=== PATIENT | female | born 1970 | race Caucasian/White ===

== ENCOUNTER 2024-04-13 06:14 | Observation (INO) ==
--- NOTE | 2024-03-10 13:44 | PAT Medication Instructions ---
Medication Instructions Date of Service March 10, 2024 Home Medications cholecalciferol (vitamin D3) 125 mcg (5,000 unit) tablet (Vitamin D3) 125 mcg PO DAILY ibuprofen 300 mg tablet 1,200 mg PO DAILY pregabalin 75 mg capsule (Lyrica) 75 mg PO BID semaglutide 1 mg/dose (4 mg/3 mL) subcutaneous pen injector (Ozempic) 1 mg subcut WK ASK your surgeon for instructions ibuprofen 300 mg tablet 1,200 mg PO DAILY STOP 7 days prior to surgery semaglutide 1 mg/dose (4 mg/3 mL) subcutaneous pen injector (Ozempic) 1 mg subcut WK DO NOT take the morning of surgery cholecalciferol (vitamin D3) 125 mcg (5,000 unit) tablet (Vitamin D3) 125 mcg PO DAILY Take morning of surgery With a small sip of water, OTHERWISE NOTHING TO EAT OR DRINK AFTER MIDNIGHT: pregabalin 75 mg capsule (Lyrica) 75 mg PO BID Take evening before surgery pregabalin 75 mg capsule (Lyrica) 75 mg PO BID Other Notes If you have any questions please call us at [phone] or [phone] or [phone] or [phone]
--- NOTE | 2024-03-22 11:12 | Anesthesiology Consultation ---
Date of Service March 22, 2024 Assessment & Plan (1) Encounter for pre-operative examination: - Check BSG, test DOS - Infectious disease screening: Per assessment on 03/22/24- No known recent infectious disease contacts or current infectious disease symptoms. - Semaglutide instructions: Patient informed by PAT to stop 7 days prior to surgery- voiced understanding. DOS 04/13/24. Advised last dose to be 04/03/24. - Patient acceptable risk for surgery pending surgeon-ordered PCP preop evaluation (Leticia TALAMANTES/[place], appt 04/05). Chart Review Chart Review: Patient seen in Pre Admission Testing Teaching & Discussion Pre-Anesthesia Teaching/Discussion Notes: Instructed NPO after midnight before surgery,except medications with 15 cc of water. Medication instructions provided according to the PAT guidelines. History Surgery Operation Date: 04/13/24 11:05 Proposed Procedures p C3-C5 Anterior Cervical Discectomy and Fusion - Axel Tee, Height/Weight Height: 5 ft 8 in Weight: 90.5 kg Allergies Allergy/AdvReac Type Severity Reaction Status Date / Time acetaminophen AdvReac Intermediate Restlessness, Verified 03/10/24 07:45 "Crawling" Sensation oxycodone AdvReac Intermediate Restlessness, Verified 03/10/24 07:45 "Crawling" Sensation Medications Home Medications Medication Instructions Recorded Confirmed Last Taken cholecalciferol (vitamin D3) 125 125 mcg PO DAILY 03/10/24 03/10/24 Unknown mcg (5,000 unit) tablet (Vitamin D3) ibuprofen 300 mg tablet 1,200 mg PO DAILY 03/10/24 03/10/24 Unknown pregabalin 75 mg capsule (Lyrica) 75 mg PO BID 03/10/24 03/10/24 Unknown semaglutide 1 mg/dose (4 mg/3 mL) 1 mg subcut WK 03/10/24 03/10/24 03/06/24 subcutaneous pen injector (Ozempic) Past Medical History Medical History Cervical radiculopathy History of hypertension "Resolved" with weight loss Hx of diabetes mellitus "Resolved" with weight loss Obesity Patient states weekly GLP-1 injectable is for weight loss (not diabetes) Exercise / Class Metabolic Activity II 4-5 Yardwork/Stairs/Walk up hill Past Surgical History Surgical History History of cervical corpectomy (2008) with fusion History of laminectomy (2004) L1 Hx of cardiac catheterization ~2020 ([facility] [address])- no stents, no significant findings per patient Hx of tonsillectomy Hx of wisdom tooth extraction Past Anesthesia History No Hx of Anesthesia Complications and No Family Hx of Anesthesia Complications History of PONV No Hx of PONV and No Hx of Motion Sickness Social History Smoking Status: Never smoker Do You Dip or Chew Tobacco: No Hx Alcohol Use: No Hx Substance Use: No substance use type: does not use Review of Systems Patient denies chest pain, shortness of breath, dyspnea on exertion, fever, chills, cough, wheezing. Physical Exam Vital Signs BP 115/80 P 68 TEMP 98.1 SP02 99%RA RESP 16 Physical Mildly decreased cervical extension range of motion. Full TMJ range of motion. TMD > 3.5 finger breaths Mallampati Score II Dentition: intact, + 2 caps, + crown Lungs: clear throughout to auscultation Cardiac: regular rate and rhythm, no murmurs noted Spine: normal Carotid arteries: negative bruit Extremities: no LE edema Lab Results Anesthesia Preop Results Results Anesthesia Widget: WBC 5.65 K/ul (4.8-10.8) 03/22/24 Hgb 14.3 g/dl (12.0-16.0) 03/22/24 Hct 42.3 % (37.0-47.0) 03/22/24 Plt 266 K/uL (130-400) 03/22/24 Na 141 mmol/L (136-145) 03/22/24 K 4.4 mmol/L (3.5-5.1) 03/22/24 Cl 104 mmol/L (98-107) 03/22/24 CO2 30 mmol/L (21-32) 03/22/24 BUN 14 mg/dl (6-23) 03/22/24 Creat 0.80 mg/dl (0.6-1.2) 03/22/24 Glucose Level 92 mg/dl (70-99(Fasting)) 03/22/24 PT 10.5 Seconds (9.0-12.0) 03/22/24 PTT 28 Seconds (21-31) 03/22/24 INR 1.0 (0.9-1.1) 03/22/24 Urine Color Yellow 03/22/24 Urine Appearance Clear (Clear) 03/22/24 Urine pH 5.5 (4.5-7.5) 03/22/24 Urine Specific [place] 1.006 (1.000-1.030) 03/22/24 Urine Protein Negative (Negative) 03/22/24 Urine Glucose (UA) Negative (Negative) 03/22/24 Urine Ketones Negative (Negative) 03/22/24 Urine Blood Negative (Negative) 03/22/24 Urine Nitrite Negative (Negative) 03/22/24 Urine Bilirubin Negative (Negative) 03/22/24 Urine Urobilinogen Negative (Negative) 03/22/24 Urine Leukocyte Esterase 1+ (Negative) H 03/22/24 Urine WBC (Auto) 0-5 /hpf (0-5) 03/22/24 Urine RBC (Auto) 0-2 /hpf (0-2) 03/22/24 Urine Hyaline Casts (Auto) 0-2 /lpf (0-2) 03/22/24 Urine Epithelial Cells (Auto) 0-2 /hpf (0-2) 03/22/24 Urine Bacteria (Auto) None Seen (None Seen) 03/22/24 Blood Type O Positive 03/22/24 Antibody Screen NEGATIVE 03/22/24 Testing Electrocardiogram Date: 03/22/24 SR with first degree AVB at 65bpm. "Otherwise normal ECG" Chest X-Ray Date: 03/22/24 Findings: + NAD Stress Test Date: 05/21/20 Type: nuclear (Lexiscan) No significant ischemia or infarction by myocardial perfusion imaging. No significant ST segment changes. EF 79%.
--- OUTSIDE RECORDS SUMMARY | 2024-04-13 06:23 | External Medical Summary ---
Author Name Unknown Address Unknown Organization K0N:[facility], [place] [address] Laboratory Report Ordering Provider Test Date Status SARAH GONZALES 04/05/2024 10:31:09 Preliminary Observation Date Value Abnormality Reference (Units ) Status [facility] CULTURE, URINE 04/05/2024 10:31:09 [id number]^[facility] ERICHIA COLI Abnormal Preliminary >100,000 coloniesmL Escheric hia coli COMPONENT DEFAULT FOR TEXT MICRO 04/05/2024 10:31:09 Test: Culture, Urine, Quantitative Abnormal Preliminary COMPONENT DEFAULT FOR TEXT MICRO 04/05/2024 10:31:09 Specimen Source: Urine, Clean Catch Abnormal Preliminary COMPONENT DEFAULT FOR TEXT MICRO 04/05/2024 10:31:09 Specimen Type: Urine Abnormal Preliminary COMPONENT DEFAULT FOR TEXT MICRO 04/05/2024 10:31:09 Specimen Date: 04/05/2024 1031 Abnormal Preliminary COMPONENT DEFAULT FOR TEXT MICRO 04/05/2024 10:31:09 Result Date: 04/06/2024 0949 Abnormal Preliminary COMPONENT DEFAULT FOR TEXT MICRO 04/05/2024 10:31:09 Result Status: Preliminary result Abnormal Preliminary COMPONENT DEFAULT FOR TEXT MICRO 04/05/2024 10:31:09 Abnormal: Yes Abnormal Preli minary COMPONENT DEFAULT FOR TEXT MICRO 04/05/2024 10:31:09 Resulting Lab: LABORATORY [facility] Abnormal Preliminary COMPONENT DEFAULT FOR TEXT MICRO 04/05/2024 10:31:09 [facility] Abnormal Preliminary COMPONENT DEFAULT FOR TEXT MICRO 04/05/2024 10:31:09 Kimberley HENDERSON [id number] Abnormal Preliminary COMPONENT DEFAULT FOR TEXT MICRO 04/05/2024 10:31:09 Abnormal Prelim inary COMPONENT DEFAULT FOR TEXT MICRO 04/05/2024 10:31:09 Abnormal Prelim inary COMPONENT DEFAULT FOR TEXT MICRO 04/05/2024 10:31:09 CULTURE Abnormal Prelim inary COMPONENT DEFAULT FOR TEXT MICRO 04/05/2024 10:31:09 Abnormal Preliminary COMPONENT DEFAULT FOR TEXT MICRO 04/05/2024 10:31:09 Abnormal Prelim inary COMPONENT DEFAULT FOR TEXT MICRO 04/05/2024 10:31:09 >100,000 colonies/mL Escherichia coli (Abnormal) Abnormal Preliminary COMPONENT DEFAULT FOR TEXT MICRO 04/05/2024 10:31:09 Abnormal Prelim inary COMPONENT DEFAULT FOR TEXT MICRO 04/05/2024 10:31:09 Abnormal Prelim inary COMPONENT DEFAULT FOR TEXT MICRO 04/05/2024 10:31:09 Abnormal Prelim [place] [address]
--- OUTSIDE RECORDS SUMMARY | 2024-04-13 06:23 | External Medical Summary | Summary of Care ---
Author Name Unknown Organization [facility] Address [address] [facility] [place] [address] Care Team Providers Care Coder Name Role Phone Leticia Sherman PA-C Primary Care Provider Reason for Visit * Reason Comments pre-op exam Patient is here for a pre-op exam for upcoming surgery 04/13 with at [facility] - spinal fusion. She has concerns with dysuria and strong odor in urine Encounter Details Date Type Department Care Team (Late st Contact Info) Description 04/05/2024 10:15 AM EST Office Visit Family Medicine, [facility] [address] [facility] [address] [phone] Leticia Sherman PA-C [address] [facility] [address] [place] [address] Pre-op exam*; Cervical spinal stenosis; Dysuria; Acute cystitis with hematuria Allergies Active Allergy Reactions Criticality Noted Date Comments Oxycodone-Acetaminop hen Itching,Other (Please comment) 02/06/2009 Crawling feeling all over documented as of this encounter (statuses as of 04/12/2024) Medications Ozempic (1 MG/DOSE) 4 MG/3ML Subcutaneous Solution Pen-injector (Semaglutide (1 MG/DOSE))Indicati ons:Diabetes mellitus type II, non insulin dependent (HCC) Inject 1 mg under the skin once a week. 3 mL 3 4 Active Pregabalin 75 MG Oral Capsule (Lyrica) Take 1 Capsule by mouth every 12 hours. 4 04/08/19 25 Ciprofloxacin HCl 500 MG Oral Tablet (Cipro)Indication s:Dysuria Take 1 Tablet by mouth in the morning and 1 Tablet before bedtime. Do all this for 5 days. 10 Tablet 5 04/10/19 25 documented as of this encounter (statuses as of 04/12/2024) Active Problems Problem Noted Date Diagnosed Date Pre-op exam 04/05/2024 Hypertension, benign 10/15/2023 Hypertriglyceridemia 10/15/2023 Degeneration, intervertebral disc, cervical 03/2023 Diabetes mellitus type II, non insulin dependent 10/15/2023 History of neck surgery 10/15/2023 Bilateral hand numbness 10/15/2023 documented as of this encounter (statuses as of 04/12/2024) Immunizations Name Administration Dates Next Due COVID-19 mRNA, LNP-s, No Pre serve, 2-Dose Series (Moderna) 07/06/2020,06/08/2020 documented as of this encounter Social History Tobacco Use Types Packs/Day Years Used Date Smoking Tobacco: Never Smokeless Tobacco: Never Tobacco Cessation:Counseling Given: Not Answered Alcohol Use Standard Drinks/Week Comments Never 0 (1 standard drink = 0.6 oz pur e alcohol) Comments No Sex and Gender Information Value Date Recorded Sex Assigned at Not on file Legal Sex Female 6:12 AM EST Gender Identity Not on file Sexual Orientation Not on file documented as of this encounter Last Filed Vital Signs Vital Sign Reading Time Taken Comments Blood Pressure 124/78 04/05/2024 10:16 AM EST Pulse 72 04/05/2024 10:16 AM EST Temperature 36.3 C (97.3 F) 04/05/2024 1 0:16 AM EST Respiratory Rate - - Oxygen Saturation 96% 04/05/2024 10: 16 AM EST Inhaled Oxygen Concentration - - Weight 91.1 kg (200 lb 12.8 oz) 01/21/2 025 10:16 AM EST Height - - Body Mass Index 30.53 10/15/2023 1:56 PM EDT documented in this encounter Progress Notes * Leticia Sherman PA-C - 04/05/2024 10:05 AM EST Images from the original note were not included. Pre-Operative Medical Evaluation Procedure Information Type of Surgery: ACDF of c3-5 with most likely stand alone cages and fixation Referring Physician / Surgeon: dr Axel Tee Date of procedure: 04/13/24 Brief History of Present Illness: Is scheduled for neck surgery 04/13 Started yesterday with dysuria, frequency and pelvic pressure; no fevers Review of Systems: Constitutional ROS: No change in weight, No weakness, No fatigue, and No fevers, sweats, or chills Eye ROS: No recent significant change in vision, No eye pain, redness, discharge, No diplopia, No h/o cataracts, and No h/o glaucoma Ear ROS: No ear pain, No drainage, No tinnitus or vertigo, and No recent change in hearing Nose ROS: No history of frequent colds or sinusitis, No nasal stuffiness, and No significant epistaxis Pulmonary ROS: No cough, sputum, or hemoptysis, No wheezing, No rales, No shortness of breath, and No recent change in breathing Cardiovascular ROS: No chest pain, No shortness of breath, No dyspnea on exertion, No orthopnea, Noparoxysmal nocturnal dyspnea, No edema, No palpitations, and No syncope Musculoskeletal/Extremities ROS: No pain, redness or swelling on the joints Skin/Integumentary ROS: No edema, No rash, and No itching Neurologic ROS: Normal balance, No headaches, No seizures, and No weakness as noted above Medical History Problem List: Pre-op exam (04/05/2024) Hypertension, benign (10/15/2023) Hypertriglyceridemia (10/15/2023) Degeneration, intervertebral disc, cervical (10/15/2023) Diabetes mellitus type II, non insulin dependent (HCC) (10/15/2023) History of neck surgery (10/15/2023) Bilateral hand numbness (10/15/2023) Current Medications Ciprofloxacin HCl 500 MG Oral Tablet (Cipro), 500 mg, Oral, Q12H Pregabalin 75 MG Oral Capsule (Lyrica), 1 Capsule, Oral, Q12H Ozempic (1 MG/DOSE) 4 MG/3ML Subcutaneous Solution Pen-injector (Semaglutide (1 MG/DOSE)), 1 mg, Subcutaneous, Q Week Allergies: Percocet [oxycodone-acetaminophen] Past Medical History: has no past medical history on file. Past Surgical History: has a past surgical history that includes neck spine fusion (cerv, below c2) (10/30/2008) and Laminectomy/Laminotomy, Cerv Thoracic,Guide. Social History: reports that she has never smoked. She has never used smokeless tobacco. She reports that she does not drink alcohol and does not use drugs. Family History: family history is not on file. Anesthesia History Type of Anesthesia: General Endotracheal and Caudal block Anesthesia reaction: No History of surgical complications: None Personal history of venous thromboembolic disease: None Physical Exam Vitals: 04/05/24 1016 Temp: 36.3 C (97.3 F) Pulse: 72 SpO2: 96% BP: 124/78 General: alert, healthy, and no distress Head: Normocephalic, No masses, lesions, tenderness or abnormalities Eye Exam: PERRLA, extraocular movements intact, conjunctiva are pink and non- injected, sclera clear Ears: External ears normal, Canals clear, TM's Normal Heart: regular rate & rhythm, no murmur, and no gallops Lungs: chest symmetric with normal AP diameter, no chest deformities noted, no chest wall tenderness, lungs clear to auscultation Extremities: less than 2 second capillary refill, no joint deformities, effusion, or inflammation Neuro Exam: alert & oriented x 3 with fluent speech, no focal motor/sensory deficits, gait normal, reflexes normal and symmetric Skin: skin color, texture, turgor are normal, no rashes or significant lesions Neck: as noted per Ortho Labs reviewed and are significant for: Levels are within normal ranges ; chest xray clear EKG by my review is significant for: sinus rhythm with 1st degree AV block - no cardiac associated signs or symptoms Surgical Risk Scoring Revised Cardiac Risk Index (RCRI) High-risk type of surgery (examples include vascular and any open intraperitoneal or intrathoracic procedures): 0=No History of ischemic heart disease (history of myocardial infarction or positive exercise test, current compliant of chest pain considered to be secondary to myocardia ischemia, use of nitrate therapy, or ECG with pathological Q waves; do not count prior coronary revascularization procedure unless one of the other criteria for ischemic heart disease is present): 0=No History of heart failure: 0=No History of cerebrovascular disease: 0=No Diabetes mellitus requiring treatment with insulin: 0=No Preoperative serum creatinine >2.0 mg/dL (177 micromol/L): 0=No Pt has revised cardiac index score of: No Risk Factors- 0.4% (95% CI: 0.1-0.8) Assessment and Plan Pre-op exam Cervical spinal stenosis Dysuria/Acute cystitis with hematuria - CULTURE, URINE, QUANTITATIVE - URINALYSIS, POINT OF CARE (ENTER/EDIT) - Ciprofloxacin HCl 500 MG Oral Tablet (Cipro); Take 1 Tablet by mouth in the morning and 1 Tablet before bedtime. Do all this for 5 days. Labs reviewed, stable Chest xray clear EKG with sinus rhythm and 1st degree AV block; no cardiac associated signs or symptoms Patient cleared for surgery pending the resolution of her urinary symptoms which should resolve with 5 day course of Ciprofloxacin Functional Assessment They are able to walk up a flight of stairs, walk two blocks at a moderate pace, do heavy house work like vacuuming, and grocery shop. The patient's functional status is good (greater than 4 METS). 1 MET: 4 METs: 4-10 METs: Can take care of self, such as eat, dress or use the toilet. Can walk to block or go up a flight of steps. Can do heavy house work. Surgical Risk Assessment Patient is low medical risk for the listed procedure and cleared based on my exam today . Medication adjustments: Cipro BID for 5 days for acute cystitis Additional consults or testing: None documented in this encounter Miscellaneous Notes * Result Encounter Note - Leticia Sherman PA-C - 04/05/2024 11:04 AM EST On cipro for 5 days - surgery 04/13 documented in this encounter Plan of Treatment Health Maintenance Due Date Last Done Comments Lipid Panel 1969 HbA1c 09/29/1975 Depression Screening 1981 HIV Screening 1984 Albumin/Creatinine Ratio 09/29/1987 Diabetic Eye Exam 09/29/1987 Diabetic Foot Exam 09/29/1987 Hepatitis C Screening 09/29/1987 DTap/Tdap Vaccines (1 - Tdap) 1988 Hepatitis B Vaccine (1 of 3 - 19+ 3-dose series) 1988 Pneumococcal Vaccine: 50+ Years (1 of 2 - PCV) 1988 Pap Smear 1990 Cervical Cancer Screening 09/29/1999 HPV/Co-Test 09/29/1999 Colonoscopy 2014 Fecal Occult Blood Test 2014 Sigmoidoscopy 2014 Zoster Vaccines (1 of 2) 09/29/2019 GFR 07/31/2021 07/31/2020 Mammogram 05/24/2023 05/23/2022, 05/23/2022, 04/29/2022 COVID-19 Vaccine (3 - 2023-2 5 season) 2023 07/06/2020, 06/08/2020 Influenza Vaccine (FLU shot) (#1) 2023 Cologuard 02/27/2025 02/27/2022 Colorectal Cancer Screening 02/27/2025 HPV (Gardasil) Vaccine Aged Out No lo nger eligible based on patient's age to complete this topic MENINGOCOCCAL (MENACTRA/MENVEO) Aged Out No longer eligible b ased on patient's age to complete this topic documented as of this encounter Medical Devices Not on filedocumented as of this encounter Procedures Procedure Name Priority Date/Time Associated Diagnosis Comments CULTURE, URINE, QUANTITATIVE Routine 04/05/2024 10:31 AM EST Dysuria URINALYSIS, POINT OF CARE (ENTER/EDIT) Routine 04/05/2024 Dysuria documented in this encounter Results * (ABNORMAL) CULTURE, URINE, QUANTITATIVE (04/05/2024 10:31 AM EST) Culture, Urine >100,000 colonies/mL Escherichia coli(A) 04/07/2024 11:58 AM EST [facility] Urine Urine specimen obtained by clean catch procedure / Unknown Non-blood Collection / Unknown 04/05/2024 10:31 AM EST 04/05/2024 10:31 AM EST Narrative Organism Antibiotic Method Susceptibility Escherichia coli Ampicillin >=32: Resistant Escherichia coli Ampicillin/Sulbactam 8: Susceptible Escherichia coli Cefazolin <=4: Susceptible Escherichia coli Cefepime <=1: Susceptible Escherichia coli Ciprofloxacin <=0.25: Susceptible Escherichia coli Gentamicin <=1: Susceptible Escherichia coli Levofloxacin <=0.12: Susceptible Escherichia coli Nitrofurantoin <=16: Susceptible Escherichia coli Piperacillin Tazobactam <=4: Susceptible Escherichia coli Tobramycin <=1: Susceptible Escherichia coli Trimeth/Sulfamethoxazole <=20: Susceptible Leticia Sherman PA-C LAB MICRO - GENERAL OR DERABLES Final Result [facility] [address] * URINALYSIS, POINT OF CARE (ENTER/EDIT) (04/05/2024) Color, Urine Yellow Yellow or Light Yellow Clarity, Urine Clear Clear Glucose, Urine Negative Negative mg/dL Bilirubin, Urine Negative Negative Ketone, Urine Negative Negative mg/dL Specific [place], Urine 1.015 1.003 - 1.030 Blood, Urine Trace-intact Negative pH, Urine 7.0 5.0 - 7.5 units Protein, Urine Negative Negative mg/dL Urobilinogen, Urine 0.2 0.2 - 1.0 mg/dL Nitrite, Urine Negative Negative Esterase, Urine Small Negative Urine 04/05/2024 Leticia Sherman PA-C LAB POINT OF CARE TEST ENTER/EDIT ORDERABLES Final Result documented in this encounter Visit Diagnoses Diagnosis Pre-op exam- Primary Preoperative examination, unspecified Cervical spinal stenosis Spinal stenosis in cervical region Dysuria Acute cystitis with hematuria Acute cystitis documented in this encounter Care Teams Coder Relationship Specialty Start Date End Date Leticia Sherman PA-C [address] [facility] [address] [place] [address] PCP - General Physician Pick Up Driver 10/15/23 documented as of this encounter
--- OUTSIDE RECORDS SUMMARY | 2024-04-13 06:23 | External Medical Summary | Summary of Care ---
Author Name Unknown Organization [facility] Address [address] [facility] [place] [address] Care Team Providers Care Chlorine Cell Tender Name Role Phone Leticia Sherman PA-C Primary Care Provider Reason for Visit * Reason Comments pre-op exam Patient is here for a pre-op exam for upcoming surgery 04/13 with at [facility] - spinal fusion. She has concerns with dysuria and strong odor in urine Encounter Details Date Type Department Care Team (Late st Contact Info) Description 04/05/2024 10:15 AM EST Office Visit Family Medicine, [facility] [address] [facility] [address] [phone] Leticia Sherman PA-C [address] [facility] [address] [place] [address] Pre-op exam*; Cervical spinal stenosis; Dysuria; Acute cystitis with hematuria Allergies Active Allergy Reactions Criticality Noted Date Comments Oxycodone-Acetaminop hen Itching,Other (Please comment) 02/06/2009 Crawling feeling all over documented as of this encounter (statuses as of 04/05/2024) Medications Ozempic (1 MG/DOSE) 4 MG/3ML Subcutaneous Solution Pen-injector (Semaglutide (1 MG/DOSE))Indicati ons:Diabetes mellitus type II, non insulin dependent (HCC) Inject 1 mg under the skin once a week. 3 mL 3 4 Active Pregabalin 75 MG Oral Capsule (Lyrica) Take 1 Capsule by mouth every 12 hours. 4 04/08/19 25 Active Ciprofloxacin HCl 500 MG Oral Tablet (Cipro)Indication s:Dysuria Take 1 Tablet by mouth in the morning and 1 Tablet before bedtime. Do all this for 5 days. 10 Tablet 5 04/10/19 25 Active documented as of this encounter (statuses as of 04/05/2024) Active Problems Problem Noted Date Diagnosed Date Pre-op exam 04/05/2024 Hypertension, benign 10/15/2023 Hypertriglyceridemia 10/15/2023 Degeneration, intervertebral disc, cervical 03/2023 Diabetes mellitus type II, non insulin dependent 10/15/2023 History of neck surgery 10/15/2023 Bilateral hand numbness 10/15/2023 documented as of this encounter (statuses as of 04/05/2024) Immunizations Name Administration Dates Next Due COVID-19 [...] Weight 91.1 kg (200 lb 12.8 oz) 025 10:16 AM EST Height - - [...] documented in this encounter Plan of Treatment Pending Results Name Type Priority Associated Diagnoses Date /Time CULTURE, URINE, QUANTITATIVE Lab Routine Dysuria 04/05/2024 10:31 AM EST Health Maintenance Due Date Last Done Comments [...] Procedure Name Priority Date/Time Associated Diagnosis Comments URINALYSIS, POINT OF CARE (ENTER/EDIT) Routine 04/05/2024 Dysuria documented in this encounter Results * URINALYSIS, POINT OF CARE (ENTER/EDIT) (04/05/2024) Color, Urine Yellow Yellow or Light Yellow Clarity, Urine Clear Clear Glucose, Urine Negative Negative mg/dL Bilirubin, Urine Negative Negative Ketone, Urine Negative Negative mg/dL Specific [place], Urine 1.015 1.003 - 1.030 Blood, Urine [...] cystitis documented in this encounter Care Teams Chlorine Cell Tender Relationship Specialty Start Date End Date Leticia Sherman PA-C [address] [place] [address] [place] [address] PCP - General Physician Correspondence Coordinator 10/15/23 documented as of this encounter
[2024-04-13] MEDS: ACETAMINOPHEN 500 MG TAB PO SCH (06:35)
[2024-04-13] MEDS: CeleBREX 200 MG CAP PO SCH (06:36)
[2024-04-13] MEDS: LR 60ML/HR IV SCH (06:36)
[2024-04-13] MEDS: GABAPENTIN 900 MG DOSE PO SCH (06:36)
[2024-04-13] MEDS: LR 15ML/HR IV SCH (06:48)
[2024-04-13] MEDS ORDERED: GLYCOPYRROLATE 0.2 MG/ML VIAL ONE (07:04)
[2024-04-13] MEDS ORDERED: ROCURONIUM BROMIDE 10 MG/ML 5 ML VIAL IV ONE (07:04)
[2024-04-13] MEDS ORDERED: DEXAMETHASONE SOD INJ 4 MG/ML VIAL ONE (07:04)
[2024-04-13] MEDS ORDERED: ONDANSETRON INJ 2 MG/ML 2 ML VIAL ONE (07:04)
[2024-04-13] MEDS ORDERED: LIDOCAINE 2% 2 ML VIAL/AMP(20MG/ML) INFIL ONE (07:04)
[2024-04-13] MEDS ORDERED: MIDAZOLAM HCL 1 MG/ML 2ML VIAL ONE (07:04)
[2024-04-13] MEDS ORDERED: fentaNYL citrate PF 100 MCG/2 ML VIAL ONE ×2 (07:04→08:43)
[2024-04-13] MEDS ORDERED: PROPOFOL IV EMULSION 10 MG/ML 20 ML VIAL IV ONE (07:04)
[2024-04-13] MEDS ORDERED: SUGAMMADEX SODIUM 200 MG/2 ML VIAL IV ONE (07:06)
[2024-04-13] MEDS ORDERED: ePHEDrine sulfate 50 MG/ML AMP IV PRN (07:30)
[2024-04-13] MEDS ORDERED: ATROPINE SULFATE 0.1 MG/ML 10ML SYR IV PRN (07:30)
--- NOTE | 2024-04-13 07:43 | History & Physical Bridge Note ---
Date of Service April 13, 2024 History & Physical Bridge Note I have examined the patient, reviewed the History & Physical and in the interval since the performance of the History & Physical I have noted the following changes of clinical significance: no changes noted
--- NOTE | 2024-04-13 07:44 | History & Physical Report ---
Date of Service April 13, 2024 Assessment & Plan (1) Cervical stenosis of spinal canal: Plan: C3-C5 anterior cervical discectomy and fusion History of Present Illness Chief Complaint: Neck and arm pain Primary Care Provider: Leticia Sherman PA-C This is a 53-year-old female who presents chronic persistent neck and arm pain and failing since course of nonoperative care is here for surgical intervention. Allergies Allergy/AdvReac Type Severity Reaction Status Date / Time acetaminophen AdvReac Intermediate Restlessness, Verified 04/13/24 06:41 "Crawling" Sensation oxycodone AdvReac Intermediate Restlessness, Verified 04/13/24 06:41 "Crawling" Sensation Home Medications Medication Instructions Recorded Confirmed Type cholecalciferol (vitamin D3) 125 125 mcg PO DAILY 03/10/24 04/13/24 History mcg (5,000 unit) tablet (Vitamin D3) ibuprofen 300 mg tablet 1,200 mg PO DAILY 03/10/24 04/13/24 History pregabalin 75 mg capsule (Lyrica) 75 mg PO BID 03/10/24 04/13/24 History semaglutide 1 mg/dose (4 mg/3 mL) 1 mg subcut WK 03/10/24 04/13/24 History subcutaneous pen injector (Ozempic) Past Med/Surg History Problem List (Updated 04/13/24 @ 07:44 by Axel Tee DO) Cervical stenosis of spinal canal Encounter for pre-operative examination Medical History Cervical radiculopathy History of hypertension "Resolved" with weight loss Hx of diabetes mellitus "Resolved" with weight loss Obesity Patient states weekly GLP-1 injectable is for weight loss (not diabetes) Surgical History History of cervical corpectomy (2008) with fusion History of laminectomy (2004) L1 Hx of cardiac catheterization ~2020 ([facility])- no stents, no significant findings per patient Hx of tonsillectomy Hx of wisdom tooth extraction Social History Smoking Status: Never smoker Second Hand Exposure: No; Do You Dip or Chew Tobacco: No; Tobacco Cessation Education Requested by Patient: No Hx Alcohol Use: No Hx Substance Use: No Preferred Language: Omani Communication Ability: Effective Mounter Automatic Required: No Beliefs That Will Affect Care: None Current Living Situation: Spouse Other Information That Helps Us Care for You: No Feels Safe at Home: Yes Safety Concerns: Feels Safe At This Time Assistive Devices: Glasses Physical Exam Physical Exam: Patient is alert and oriented heart regular rhythm Lungs clear Results & Data Results & Data Vital Signs (Past 12 Hours) Vital Signs Temp Pulse Resp BP Pulse Ox O2 Del Method 04/13/24 06:44 36.7 C 70 18 132/91 98 Room Air
[2024-04-13] MEDS: ceFAZolin 2000MG 2,000 MG/15 ML SYR IV SCH ×2 (07:52→16:06)
[2024-04-13] MEDS: ceFAZolin 330 MG/ML 1 GM VIAL ONE (08:27)
[2024-04-13] MEDS: FLOSEAL HEMOSTATIC MATRIX 10ML TOP ONE (09:14)
--- NOTE | 2024-04-13 09:24 | Operative Report ---
Post Operative Report Pre & Post Diagnosis Operation Date: 04/13/24 07:45 Pre-Op Diagnosis: #1 cervical spinal stenosis with neuroforaminal stenosis #2 cervical spondylosis with radiculopathy Post-Op Diagnosis: Same I identified the patient and participated in the time-out.: Yes Procedure Operation Date: 04/13/24 07:45 Actual Procedures #1 anterior cervical discectomy with bilateral foraminotomies C3-C4 C4-C5. #2 anterior cervical arthrodesis C3-C4 C4-C5. #3 placement of globus coalition cage 7 mm in height at C3-C4 and C4-C5 filled with os design bone graft. Surgeon Axel Tee, Flour Blender Helper Angelica Holder Estimated Blood Loss 10 Findings Consistent with Post-Op Diagnosis Specimens None Indications This is a 53-year-old female presents publish diagnosis after failing course of nonoperative care is here for surgical invention. Description of Procedure Patient is met with identified informed consent obtained. Patient was then taken to the operative suite underwent sedation placed in spine position on the Pj table the head Childs screwhead polisher. All bony prominences well-padded eyes inspected to ensure no external pressure placed upon them. This point the anterior cervical spine was prepped and draped in a sterile fashion. The assistance of fluoroscopy notified the C4 vertebral body and a transverse incision was placed along the right anterior aspect of the cervical spine overlying this region. Blunt dissection with the assistance of bipolar cautery performed down to and exposing the anterior cervical spine from C3 3 to C5. A self-retaining retractors placed. Then performed a complete discectomy at C4-C5 out to the uncovertebral joints bilaterally. This included removal of all posterior annular fibers longitudinal ligament bilateral foraminotomies were performed. Endplates burred to subcortical bleeding bone and a 7 mm coalition cage filled with os design bone graft tapped into position and screwed into place. [place] distractor pins were utilized to assist in visualization. Then proceeded at C3-C4. Again complete discectomy performed out to the uncovertebral joints bilaterally. Performed complete removal of the posterior annulus and bilateral foraminotomies. Endplates burred to subcortical bleeding bone and a second 7 mm coalition cage filled with os design bone graft tapped in position and screwed into place with fluoroscopic visualization. The incision was then copiously irrigated explored to ensure no damage to surrounding structures remaining bleeding. 10 round OSIRIS drain inserted. The incision was then closed with 2 Vicryl in the fashion of 4 Monocryl for final skin closure. Steri-Strips sterile dressing placed. Patient waken taken to PACU stable condition. Please note spinal cord monitoring was utilized out the procedure no changes noted. Angelica Holder was present out the entire procedure and brought the patient positioning complex portions of the surgery and final skin closure. I attest to the content of the Intraoperative Record and any orders documented therein. Any exceptions are noted below.
[2024-04-13] MEDS: fentaNYL citrate PF 100 MCG/2 ML VIAL IV PRN (09:39)
[2024-04-13] MEDS: ONDANSETRON INJ 2 MG/ML 2 ML VIAL IV PRN (10:02)
[2024-04-13] MEDS: HYDROmorphone INJ 1 MG/ML SYRINGE IV PRN ×2 (10:19→11:45)
[2024-04-13] MEDS: DROPERIDOL 5 MG/2 ML VIAL ONE (10:39)
[2024-04-13] MEDS: DROPERIDOL 5 MG/2 ML VIAL IV PRN (10:39)
--- NOTE | 2024-04-13 10:48 | Anesthesiology Progress Note ---
Date of Service April 13, 2024 Anesthesia Post Procedure Vital Signs Vital Signs: Temp Pulse Pulse Resp BP Pulse Ox O2 Del Method 04/13/24 10:40 60 12 111/73 100 Nasal Cannula 04/13/24 10:30 61 12 118/73 96 Nasal Cannula 04/13/24 10:20 61 12 116/79 98 Nasal Cannula 04/13/24 10:10 67 12 132/86 97 Nasal Cannula 04/13/24 10:00 70 12 123/83 100 Nasal Cannula 04/13/24 09:50 68 12 126/83 100 Oxymask 04/13/24 09:40 81 12 129/85 100 Oxymask 04/13/24 09:30 36.3 C L 84 12 113/74 95 Oxymask 04/13/24 06:44 36.7 C 70 18 132/91 98 Room Air O2 Flow Rate 04/13/24 10:40 2 04/13/24 10:30 2 04/13/24 10:20 2 04/13/24 10:10 2 04/13/24 10:00 2 04/13/24 09:50 4 04/13/24 09:40 9 04/13/24 09:30 9 04/13/24 06:44 Pain Intensity Bilateral Neck: Pain Intensity: 9 Neck: Pain Intensity: 8 Transfer of Care Handoff Completed per policy Notes Mental Status: alert / awake / arousable Patient Amnestic to Procedure: Yes Nausea / Vomiting: adequately controlled Pain: adequately controlled Airway Patency, RR, SpO2: stable & adequate BP & HR: stable & adequate Hydration State: stable & adequate Anesthetic Complications: no major complications apparent and Pt Satisfied with anesthetic care
--- NOTE | 2024-04-13 10:51 | Fluoroscopy Report ---
FL cervical 2-3V CLINICAL HISTORY: ACDF C3-C5 COMPARISON STUDY: Cervical spine radiographs October 30, 2008. FLUOROSCOPY TIME: 7 seconds. Ka,r: 0.57 mGy FLUOROSCOPIC IMAGES: 2 FINDINGS: Fluoroscopy was provided during C3-C4 and C4-C5 anterior discectomy and fusion. Previous C5 -C7 anterior discectomy and fusion with C6 corpectomy is noted. Endotracheal tube is incidentally not ed. Linear radiodensity on the initial image is not present on the subsequent image. IMPRESSION: Fluoroscopy provided during C3-C5 anterior discectomy and fusion. ACT 112: Negative or not required by law. Electronically signed by: Lucho Melgar M.D. 04/13/2024 10:50 AM
[2024-04-13] MEDS ORDERED: METOCLOPRAMIDE HCL INJ 5 MG/ML 2 ML VIAL IV PRN (11:16)
[2024-04-13] MEDS ORDERED: hydrOXYzine HCl 25 MG TAB PO PRN (11:16)
[2024-04-13] MEDS ORDERED: MAGNESIUM HYDROXIDE SUSP 30 ML UDC PO PRN (11:16)
[2024-04-13] MEDS ORDERED: RACEPINEPHRINE 2.25% NEBU SOLN 0.5 ML VIAL INH PRN (11:16)
[2024-04-13] MEDS ORDERED: DO NOT ADMINISTER PNEUMOCOCCAL VACCINE PRN (11:16)
[2024-04-13] MEDS ORDERED: FAMOTIDINE 20 MG TAB PO PRN (11:16)
[2024-04-13] MEDS ORDERED: NALOXONE HCL 0.4 MG/1 ML VIAL/CARP IV PRN (11:16)
[2024-04-13] MEDS ORDERED: ONDANSETRON INJ 2 MG/ML 2 ML VIAL IV PRN (11:16)
[2024-04-13] MEDS ORDERED: bisacodyL 10 MG SUPP PR PRN (11:16)
[2024-04-13] MEDS ORDERED: ONDANSETRON 4 MG OD TAB PO PRN (11:16)
[2024-04-13] MEDS ORDERED: dexAMETHasone 8 MG in SYRINGE 0 ML IV PRN (11:16)
[2024-04-13] MEDS ORDERED: SOD PHOSPHATE/SOD BIPHOSPHATE ENEMA 132 ML BTL PR PRN (11:16)
[2024-04-13] MEDS ORDERED: LORazepam 0.5 MG TAB PO PRN (11:16)
[2024-04-13] MEDS ORDERED: PROMETHAZINE 12.5 MG/50.5 ML BAG IV PRN (11:16)
[2024-04-13] MEDS ORDERED: diphenhydrAMINE Capsule 25 MG CAP PO PRN (11:16)
[2024-04-13] MEDS ORDERED: DO NOT ADMINISTER FLU VACCINE PRN (11:16)
[2024-04-13] MEDS ORDERED: LORazepam 2 MG/1 ML VIAL IV PRN (11:16)
[2024-04-13] MEDS ORDERED: ALUMINUM/MAGNESIUM SUSP 30 ML UDC PO PRN (11:16)
[2024-04-13] MEDS: PREGABALIN 75 MG CAP PO SCH (21:07)
[2024-04-13] MEDS: DOCUSATE SODIUM/SENNA 50/8.6MG TAB PO SCH (21:07)
[2024-04-14] MEDS: HYDROmorphone INJ 0.5 MG/0.5 ML SYR IV PRN (01:02)
[2024-04-14] MEDS: POLYETHYLENE (MIRALAX) 17 GM PACK PO SCH (05:29)
[2024-04-14] MEDS: traMADol HCL 50 MG TABLET PO PRN (07:17)
[2024-04-14 07:49] VITALS: RESP 16
[2024-04-14 08:30] VITALS: O2SAT 98
--- NOTE | 2024-04-14 08:46 | Discharge Summary ---
Date of Service April 14, 2024 Admission HPI Per Admitting Provider This is a 53-year-old female who presents chronic persistent neck and arm pain and failing since course of nonoperative care is here for surgical intervention. Principal Diagnosis Cervical spinal stenosis with radiculopathy Discharge Data Allergies Allergy/AdvReac Type Severity Reaction Status Date / Time acetaminophen AdvReac Intermediate Restlessness, Verified 04/13/24 06:41 "Crawling" Sensation oxycodone AdvReac Intermediate Restlessness, Verified 04/13/24 06:41 "Crawling" Sensation Procedures Performed Operation Date: 04/13/24 07:45 Actual Procedures p C3-C5 Anterior Cervical Discectomy and Fusion, Spinal Cord Monitoring(Not Applicable) - Axel Tee DO Ordered Studies 04/13/24 07:45 [place] cervical 2-3V Routine Hospital Course (1) Cervical stenosis of spinal canal: Patient had 1 anterior cervical discectomy and fusion tolerated as well as taken to orthopedic for postoperative post ablation swallowing well. No hoarseness. Excellent strength testing. OSIRIS drain decreasing appropriately. Pain well- controlled. Simply discharged home. Discharge orders instructions from the chart for further review. Total Time Total Time Spent Total Time Spent (In Minutes): 20 minutes Discharge Plan Discharge Items Patient Disposition: Home - Self-Care Reason For Visit: Cervical Disc Disease, Foraminal Stenosis Cervical Discharge Diagnosis: Cervical spondylosis with radiculopathy Activity: As commented below Non-emergency contact: Primary Care Provider Call non-emergency contact if: you have any medication questions Follow-up/Referrals: Leticia Sherman PA-C [Primary Care Provider] - Diet: Regular Addtl Attending Provider Instructions: ACTIVITY RECOMMENDATIONS: SELF CARE INSTRUCTIONS AFTER CERVICAL FUSIONS 1. No smoking. Smoking drastically decreases the chance of a solid fusion. 2. No bending, lifting more than 5 pounds, or twisting (roll like a log when tu rning in bed). 3. You may shower 3 days after surgery. Thoroughly dry wound. Do not soak in the tub. 4. Cervical collar: Must be worn at all times including sleeping. You may remove the brace only to bath, eat and if you are sitting in a recliner. 5. Please walk as much as you can for exercise. Gradually increase the distance that you walk as your endurance increases. 6. You may return to previous diet. SPECIAL CARE INSTRUCTIONS: VERY IMPORTANT TO READ AND REVIEW A. Do not take any anti-inflammatory medications (i.e. Indocin, Advil, Aspirin, Naprosyn, Aleve, Motrin, etc.) as these may inhibit the chance of a solid fusion. Tylenol is okay to take. B. Your surgical incision has been closed with a cosmetic suture under the skin that will dissolve in about 6 weeks. In 14 days, you can use a pair of clean scissors and cut the suture that is left outside of the skin at the ends of your incision. C. Complications are uncommon, but please contact us if you have any signs or symptoms of: 1. wound infection (fever higher than 102.5 degrees F, redness, separation of wound, drainage, or increasing pain from the incision) 2. blood clots in legs (pain, swelling, redness and warmth in legs) 3. urinary tract infection (fever higher than 102.5 degrees, burning upon urination or increased frequency of urination) 4. nerve problems (inability to walk on your toes or heels, numbness, loss of bowel or bladder control) 5. any other symptoms that concern you. D. Please call the office at if you have any concerns or questions about your operation or recovery. MANAGING PAIN AFTER SPINAL SURGERY 1. Narcotic medication is intended for short-term use and will be provided for surgical pain. Surgical pain usually lasts for a period of 4-6 weeks. Narcotic medication includes Percocet, Vicodin, Darvocet, Tylenol #3 or Lortab. 2. Longer-term pain is more appropriately treated with non-narcotic medication such as Tylenol ES. 3. Muscle spasm is not appropriately treated with narcotics. Muscle relaxers such as Soma, Flexeril or Skelaxin can be used along with Tylenol ES. 4. Remember that we all live with some "aches and pains". This is not unusual or uncommon after an injury or as we get older. 5. We will provide appropriate medication within the normal guidelines of their prescribed use. We will also be very cautious and aware of potential abuse and extended duration of patients' medication needs. 6. Please allow 2-3 days to process refills. Prescriptions will not be mailed but must be picked up at the office. FOLLOW UP VISIT: Keep your scheduled follow-up appointment. Any questions, please call the office at . Pending Studies at Discharge: No Stand-Alone Forms: [facility], Smoking Cessation Medications and DC Order Prescriptions: New tramadol 50 mg tablet 50 mg PO Q6H PRN (Reason: pain, moderate) Qty: 30 0RF Continued pregabalin [Lyrica] 75 mg Capsule 75 mg PO BID cholecalciferol (vitamin D3) [Vitamin D3] 125 mcg (5,000 unit) Tablet 125 mcg PO DAILY Ozempic 1 mg/dose (4 mg/3 mL) Pen Injector 1 mg SUBCUT WK Rx Instructions: Sundays Discontinued ibuprofen 300 mg Tablet 1,200 mg PO DAILY Discharge Orders: Discharge Order (Routine); Ordered 04/14/24 Ordered By: Axel Tee Admission Data Admit Date/Time: 04/13/24 09:27 Attending Provider: Axel Tee Admit Provider: Axel Tee Primary Care Provider: Leticia Sherman
[2024-04-14 09:06] VITALS: PULSE 78; TEMP 97.9
[2024-04-14] MEDS: CHOLECALCIFEROL 125 MCG (5,000 UNITS) TAB PO SCH (09:17)
[2024-04-14] MEDS: dexAMETHasone 6 MG in SYRINGE 0 ML IV SCH (09:19)
[2024-04-14 10:34] VITALS: BP 127/78
== END 2024-04-14 11:26 | disposition home or self-care (01) ==
LOC: 3N 06:14 → ASU 06:14